=== PATIENT | female | born 1970 | race Asian ===

== ENCOUNTER 2025-06-17 19:44 | Emergency (ER) | payer SELFPAY ==
[2025-06-17] MEDS ORDERED: Sodium Chloride 0.9% 10 ML Syringe FLUSH PRN (20:10)
[2025-06-17 20:58] LABS: BASOPHILS PERCENT AUTO 0.2 % (0.0-1.0); EOSINOPHILS PERCENT AUTO 3.4 % (1.0-3.0); LYMPHOCYTES PERCENT AUTO 34.8 % (20.5-50.1); MONOCYTES PERCENT AUTO 9.7 % (2-8); NEUTROPHILS PERCENT AUTO 51.9 % (42.2-75.2); PLATELET COUNT,PLT 338 10^3/uL (150-450); RED BLOOD CELL COUNT 4.13 10^6/uL (4.2-5.4); WHITE BLOOD CELL COUNT,WBC 5.6 10^3/uL (5.0-10.0)
[2025-06-17] MEDS: Nitroglycerin 0.4 MG Tab.SL SL PRN (21:07)
[2025-06-17 21:17] LABS: B-TYPE NATRIURETIC PEPTIDE,BNP 19 pg/ml (0-100)
[2025-06-17 21:21] LABS: A/G RATIO 1.0; ALANINE AMINOTRANSFERASE,ALT 23 U/L (14-59); ASPARTATE AMNIOTRANSFERASE,AST 11 U/L (15-37); BILIRUBIN TOTAL 0.3 mg/dL (0.2-1.0); BLOOD UREA NITROGEN,BUN 12 mg/dL (7-18); CARBON DIOXIDE,CO2 26 mmol/L (21-32); CHLORIDE,CL 104 mmol/L (98-107); CHOLESTEROL HDL 47 mg/dL (40-59); CHOLESTEROL LDL CALCULATED 56 mg/dL (0-100); CHOLESTEROL TOTAL 127 mg/dL (0-199); CREATININE 0.62 mg/dL (0.55-1.02); EST CRCL DRUG DOSING (CG) 98.24 mL/min; GLUCOSE RANDOM 94 mg/dL (70-99); POTASSIUM,K 3.6 mmol/L (3.5-5.1); PROTEIN TOTAL,TP 6.7 g/dL (6.4-8.2); SODIUM,NA 140 mmol/L (136-145); TSH ULTRASENSITIVE 0.82 uIU/mL (0.36-3.74)
[2025-06-17 21:24] LABS: ESTIMATED GFR 106 mL/min (>=60)
[2025-06-17 21:27] LABS: INR 0.9 (0.9-1.2); PTT,PARTIAL THROMBOPLSTIN TIME 26.0 SEC (22.0-34.0)
[2025-06-17] MEDS: Ketorolac 30 MG/ML SDV IVPUSH ONE (21:46)
[2025-06-17] MEDS: Take Home: Cyclobenzaprine 10 MG Tab, 4 Tab Pack PO ONE (21:47)
== END 2025-06-17 22:00 | disposition home or self-care (01) ==
LOC: DL.ED 19:44
DX: S29.011A Strain of muscle and tendon of front wall of thorax, initial encounter (principal); E66.9 Obesity, unspecified; F17.210 Nicotine dependence, cigarettes, uncomplicated; Z68.35 Body mass index [BMI] 35.0-35.9, adult; X58.XXXA Exposure to other specified factors, initial encounter; Y99.0 Civilian activity done for income or pay
CPT/HCPCS: 36415; 71045; 80053; 80061; 83036; 83735; 83880; 84443; 84484; 85025; 85610; 85730; 93005; 93010; 96374; 99284; 99285; A9270; J1885